=== PATIENT | male | born 1985 | race Two or more races ===

== ENCOUNTER 2016-11-18 07:00 | Emergency (ER) | payer SELFPAY ==
[~2016-11-18] VITALS: Ht 170.2 cm; Wt 70.3 kg
[2016-11-18] MEDS ORDERED: IV NS 0.9% 500 ML BAG IV ONE (07:30)
[2016-11-18 07:48] LABS: BASOPHILS % (AUTO) 0.5 % (0.0-2.0); DIFF TOTAL % 100 %; EOSINOPHILS # (AUTO) 0.2 /CMM (0.0-0.7); EOSINOPHILS % (AUTO) 2.5 % (0.0-6.0); HEMATOCRIT 43 % (39-51); HEMOGLOBIN 14.7 g/dL (13.5-17.5); LYMPHOCYTES # (AUTO) 1.9 /CMM (0.8-4.8); LYMPHOCYTES % (AUTO) 22.9 % (20.0-44.0); MEAN CORPUSCULAR HEMOGLOBIN 32 PG (26.0-33.0); MEAN CORPUSCULAR HGB CONC 34 g/dl (31.0-36.0); MEAN CORPUSCULAR VOLUME 93 fL (80-96); MONOCYTES # (AUTO) 0.8 /CMM (0.1-1.30); MONOCYTES % (AUTO) 9.7 % (2.0-12.0); NEUTROPHILS # (AUTO) 5.3 /CMM (1.8-8.9); NEUTROPHILS % (AUTO) 64.4 % (43.0-81.0); PLATELET COUNT (AUTO) 292 /CMM (150-450); RED BLOOD CELL COUNT(AUTO) 4.65 MIL/uL (4.5-6.0); WHITE BLOOD COUNT (AUTO) 8.3 K/uL (4.3-11.0)
[2016-11-18] MEDS ORDERED: IV SET PRIMARY 1 EA INFUS.SET MC ONE (07:58)
[2016-11-18] MEDS ORDERED: IV NS 0.9% 500 ML IV ONE (07:58)
[2016-11-18 08:06] LABS: ALANINE AMINOTRANSFERASE 32 U/L (12-78); ALBUMIN 3.5 g/dL (3.4-5.0); ANION GAP 11 (5-14); ASPARTATE AMINOTRANSFERASE 19 U/L (15-37); BILIRUBIN,DIRECT 0.1 mg/dL (0.0-0.2); BILIRUBIN,TOTAL 0.3 mg/dL (0.2-1.0); CALCIUM, SERUM 8.6 mg/dL (8.5-10.1); CARBON DIOXIDE 29 mmol/L (21-32); CHLORIDE 104 mmol/L (98-107); CREATININE 0.8 mg/dL (0.6-1.3); GFR 114 mL/min (>60); GLUCOSE 98 mg/dL (74-106); INDIRECT BILIRUBIN 0.2 mg/dL (0.0-1.1); POTASSIUM 3.6 mmol/L (3.5-5.1); SODIUM SERUM 140 mmol/L (136-145); TOTAL PROTEIN, SERUM 7.6 g/dL (6.4-8.2); UREA NITROGEN, BLOOD 12 mg/dL (7-18)
[2016-11-18 08:14] LABS: ACETAMINOPHEN 0 ug/ml (10-30); SALICYLATE 1.3 mg/dL (2.8-20.0)
[2016-11-18] MEDS ORDERED: IV NS 0.9% 250 ML IV ONE (08:26)
[2016-11-18] MEDS ORDERED: CT SWABBABLE VALVE TRANS SET 1 EA INFUS.SET MC ONE (08:26)
[2016-11-18] MEDS ORDERED: IOHEXOL-300 100 ML VIAL IV ONE (08:26)
[2016-11-18] MEDS ORDERED: HALOPERIDOL LACTATE INJ 5 MG/ML VIAL ONE (08:34)
[2016-11-18] MEDS ORDERED: LORAZEPAM INJ 2 MG/ML VIAL IM ONE (09:00)
[2016-11-18] MEDS ORDERED: HALOPERIDOL LACTATE INJ 5 MG/ML VIAL IM ONE (09:00)
[2016-11-18 10:10] LABS: KETONES,URINE NEGATIVE (NEGATIVE); LEUKOCYTE ESTERASE ,URINE NEGATIVE (NEGATIVE); PH,URINE 6.5 (5.0-8.0)
[2016-11-18 10:11] LABS: ADD UA MICROSCOPIC YES
[2016-11-18 10:48] LABS: ADD URINE CULTURE NO; MUCUS,URINE Few /LPF (None Seen); RBC,URINE 0-2 /HPF (0-2); WBC,URINE 0-2 /HPF (0-3)
[2016-11-18 10:58] LABS: PHENCYCLIDINE SCREEN,URINE NEGATIVE (NEGATIVE)
[2016-11-18 11:16] LABS: CANNABINOID, URINE POSITIVE (NEGATIVE)
[2016-11-18] MEDS ORDERED: OLANZAPINE 10 MG VIAL IM ONE (11:30)
[2016-11-18 19:33] VITALS: BP 139/88
[2016-11-19 13:13] LABS: HEPATITIS C VIRUS AB 0.2 s/co ratio (0.0-0.9)
[2016-11-19 20:58] LABS: HIV-1 p24 ANTIGEN NON REACTIVE (NONREACTIVE); HIV-1/2 ANTIBODY NON REACTIVE (NONREACTIVE)
== END 2016-11-18 19:33 | disposition home or self-care (01) ==
LOC: ER 07:03
DX: T50.991A Poisoning by other drugs, medicaments and biological substances, accidental (unintentional), initial encounter (principal); G93.40 Encephalopathy, unspecified; R51 Headache; Y92.89 Other specified places as the place of occurrence of the external cause
CPT/HCPCS: 36415; 70450; 71010; 71260; 72125; 72193; 74160; 80048; 80076; 80305; 80329; 81001; 85025; 86803; 87340; 96372; 99291; A4606; G0480 ×2; J1630; J7040; J7050; Q9967; Z7610; 81000-TC; G6039-TC